=== PATIENT | female | born 1985 | race Hispanic/Latino ===

== ENCOUNTER 2018-07-20 16:51 | Emergency (ER) | payer SELFPAY ==
[2018-07-20 17:55] LABS: APPEARANCE,URINE Clear (CLEAR); BILIRUBIN,URINE Negative (NEGATIVE); COLOR,URINE Yellow (YELLOW); GLUCOSE, URINE (UA) >=1000 mg/dL (NEGATIVE); KETONES,URINE Negative (NEGATIVE); LEUKOCYTE ESTERASE ,URINE Trace (NEGATIVE); NITRATE,URINE Negative (NEGATIVE); OCCULT BLOOD,URINE Negative (NEGATIVE); PH,URINE 6.5 (5.0-8.0); PROTEIN,URINE Negative (NEGATIVE)
[2018-07-20 17:58] LABS: HCG,QUAL RESULT NEGATIVE (NEGATIVE)
[2018-07-20 18:37] LABS: BACTERIA,URINE Rare /HPF (None Seen); RBC,URINE 0-1 /HPF (0-1); SQUAMOUS EPITHELIAL CELL,UR Few /HPF (0-2)
[2018-07-20] MEDS ORDERED: LIDOCAINE HCL-MPF 1% 2ML VIAL ONE (19:08)
[2018-07-20] MEDS ORDERED: CEFTRIAXONE SODIUM 1 GM ONE (19:08)
[2018-07-20] MEDS ORDERED: PHENAZOPYRIDINE HCL 200 MG TABLET ONE (19:08)
== END 2018-07-20 19:39 | disposition home or self-care (01) ==
LOC: EDH 16:51
DX: N30.00 Acute cystitis without hematuria (principal); Z90.49 Acquired absence of other specified parts of digestive tract; Z72.0 Tobacco use
CPT/HCPCS: 81001; 81025; 87486; 87797; 96372; 99283; J0696; J3490

== ENCOUNTER 2019-01-26 18:09 | Emergency (ER) | payer OTHER ==
[2019-01-26 18:52] LABS: APPEARANCE,URINE Clear (CLEAR); BILIRUBIN,URINE Negative (NEGATIVE); COLOR,URINE Yellow (YELLOW); GLUCOSE, URINE (UA) >=1000 mg/dL (NEGATIVE); KETONES,URINE Negative (NEGATIVE); LEUKOCYTE ESTERASE ,URINE Negative (NEGATIVE); NITRATE,URINE Negative (NEGATIVE); OCCULT BLOOD,URINE Negative (NEGATIVE); PROTEIN,URINE Negative (NEGATIVE)
[2019-01-26 18:54] LABS: HCG,QUAL RESULT NEGATIVE (NEGATIVE)
[2019-01-26] MEDS ORDERED: ACETAMINOPHEN EXTRA STRENGTH 500 MG TABLET ONE (18:58)
[2019-01-26 19:24] LABS: BASOPHILS % (AUTO) 0.5 % (0.0-5.0); LYMPHOCYTES % (AUTO) 20.6 % (21.0-51.0); MEAN CORPUSCULAR HEMOGLOBIN 29.1 pg (27.0-33.0); MEAN CORPUSCULAR HGB CONC 33.5 g/dL (32.0-36.0); MEAN CORPUSCULAR VOLUME 86.8 fL (79-99); MONOCYTES % (AUTO) 6.1 % (3.0-13.0); NEUTROPHILS % (AUTO) 71.8 % (40.0-77.0); PLATELET COUNT (AUTO) 363 K/uL (130-400); RED BLOOD CELL COUNT(AUTO) 4.83 MIL/uL (4.00-5.50); RED CELL DISTRIBUTION WIDTH 13.2 % (11.0-15.5); WHITE BLOOD COUNT (AUTO) 14.3 K/uL (4.8-10.8)
[2019-01-26 19:28] LABS: CREATININE 0.7 mg/dL (0.5-1.5); POTASSIUM 3.7 mmol/L (3.5-5.1)
[2019-01-26 19:33] LABS: ALBUMIN 3.3 g/dL (3.5-5.0); BILIRUBIN,TOTAL 0.3 mg/dL (0.2-1.0); TOTAL PROTEIN, SERUM 7.5 g/dL (6.0-8.3)
[2019-01-26] MEDS ORDERED: LIDOCAINE HCL-MPF 1% 2ML VIAL ONE (19:41)
[2019-01-26] MEDS ORDERED: CEFTRIAXONE SODIUM 500 MG VIAL ONE (19:41)
[2019-01-26] MEDS ORDERED: AZITHROMYCIN 250 MG TABLET PO ONE (19:42)
[2019-01-26] MEDS ORDERED: KETOROLAC TROMETHAMINE 30MG/ML ONE (19:42)
== END 2019-01-26 20:51 | disposition home or self-care (01) ==
LOC: EDH 18:09
DX: R10.30 Lower abdominal pain, unspecified (principal); E11.9 Type 2 diabetes mellitus without complications; Z72.0 Tobacco use
CPT/HCPCS: 36415; 80053; 81003; 81025; 83690; 85025; 87210; 96372 ×2; 99284; J0696; J1885; J3490

== ENCOUNTER 2020-05-01 15:47 | Emergency (ER) | payer SELFPAY ==
[2020-05-01] MEDS ORDERED: ONDANSETRON HCL 4 MG/2 ML VIAL ONE (16:36)
[2020-05-01] MEDS ORDERED: KETOROLAC TROMETHAMINE 30MG/ML ONE (16:36)
[2020-05-01 16:37] LABS: BASOPHILS % (AUTO) 0.6 % (0.0-5.0); EOSINOPHILS % (AUTO) 1.6 % (0.0-8.0); HEMATOCRIT 41.5 % (36-48); LYMPHOCYTES % (AUTO) 27.4 % (21.0-51.0); MEAN CORPUSCULAR HEMOGLOBIN 29.6 pg (27.0-33.0); MEAN CORPUSCULAR VOLUME 87.2 fL (79-99); MONOCYTES % (AUTO) 5.8 % (3.0-13.0); NEUTROPHILS % (AUTO) 64.1 % (40.0-77.0); PLATELET COUNT (AUTO) 401 K/uL (130-400); RED BLOOD CELL COUNT(AUTO) 4.76 MIL/uL (4.00-5.50); RED CELL DISTRIBUTION WIDTH 11.8 % (11.0-15.5); WHITE BLOOD COUNT (AUTO) 14.9 K/uL (4.8-10.8)
[2020-05-01 16:46] LABS: CREATININE 0.8 mg/dL (0.5-1.5); POTASSIUM 3.8 mmol/L (3.5-5.1)
[2020-05-01 16:50] LABS: ALBUMIN 3.6 g/dL (3.5-5.0); BILIRUBIN,TOTAL 0.4 mg/dL (0.2-1.0); TOTAL PROTEIN, SERUM 7.8 g/dL (6.0-8.3)
[2020-05-01 17:30] LABS: APPEARANCE,URINE Clear (CLEAR); BILIRUBIN,URINE Negative (NEGATIVE); COLOR,URINE Yellow (YELLOW); GLUCOSE, URINE (UA) >=1000 mg/dL (NEGATIVE); KETONES,URINE Negative (NEGATIVE); LEUKOCYTE ESTERASE ,URINE Negative (NEGATIVE); NITRATE,URINE Negative (NEGATIVE); OCCULT BLOOD,URINE Small (NEGATIVE); PROTEIN,URINE Negative (NEGATIVE)
[2020-05-01] MEDS ORDERED: CEFTRIAXONE SODIUM 1 GM ONE (17:30)
[2020-05-01] MEDS ORDERED: INSULIN HUMULIN R 100 UNIT/ML 3ML ONE (17:32)
[2020-05-01 17:50] LABS: BACTERIA,URINE Few /HPF (None Seen); SQUAMOUS EPITHELIAL CELL,UR Moderate /HPF (0-2)
== END 2020-05-01 18:42 | disposition home or self-care (01) ==
LOC: EDH 15:47
DX: N20.0 Calculus of kidney (principal); E13.65 Other specified diabetes mellitus with hyperglycemia; E66.01 Morbid (severe) obesity due to excess calories; Z98.890 Other specified postprocedural states; Z72.0 Tobacco use; Z68.42 Body mass index [BMI] 45.0-49.9, adult
CPT/HCPCS: 36415; 74176; 80053; 81001; 81025; 82948; 85025; 96361; 96374; 96375; 99284; J0696; J1815; J1885; J2405

== ENCOUNTER 2021-08-13 17:23 | Emergency (ER) | payer SELFPAY ==
[~2021-08-13] VITALS: Ht 157.5 cm; Wt 102.1 kg
[2021-08-13] MEDS ORDERED: SULF1TAB42 PO (18:15)
[2021-08-13] MEDS ORDERED: METF-444 PO (18:15)
[2021-08-13] MEDS ORDERED: SULFAMETHOX-TMP DS 800/160 TAB PO SCH (18:30)
[2021-08-13] MEDS ORDERED: IBUPROFEN 600 MG TABLET ONE (19:05)
[2021-08-13 19:21] VITALS: BP 124/79
== END 2021-08-13 19:28 | disposition home or self-care (01) ==
LOC: EDH 17:23
DX: L02.416 Cutaneous abscess of left lower limb (principal); E11.9 Type 2 diabetes mellitus without complications; Z79.84 Long term (current) use of oral hypoglycemic drugs
CPT/HCPCS: 10060; 87070; 87076

== ENCOUNTER 2022-05-27 00:12 | Emergency (ER) | payer OTHER ==
[~2022-05-27] VITALS: Ht 154.9 cm; Wt 101.7 kg
[~2022-05-27 00:12] MED LIST: METF-444 PO; SULF1TAB42 PO
[2022-05-27 01:16] VITALS: BP 142/91
[2022-05-27] MEDS ORDERED: IBUP-1493 PO (01:24)
[2022-05-27] MEDS ORDERED: METF-444 PO (01:24)
[2022-05-27] MEDS ORDERED: SULF1TAB42 PO (01:24)
[2022-05-27] MEDS ORDERED: DIPH,PERTUSS(ACELL),TET VAC/PF 0.5 ML VIAL IM ONE (01:30)
[2022-05-27] MEDS ORDERED: TETANUS/DIPHTHERIA TOXOID [ADULT] 0.5 ML VIAL IM ONE (01:47)
== END 2022-05-27 01:38 | disposition home or self-care (01) ==
LOC: EDH 00:12
DX: L02.415 Cutaneous abscess of right lower limb (principal); E11.9 Type 2 diabetes mellitus without complications; E66.9 Obesity, unspecified; Z68.41 Body mass index [BMI] 40.0-44.9, adult; Z79.84 Long term (current) use of oral hypoglycemic drugs
CPT/HCPCS: 10060; 82948; 90471; 90714

== ENCOUNTER 2024-05-10 14:56 | Emergency (ER) | payer BC ==
[~2024-05-10] VITALS: Ht 144.8 cm; Wt 93.0 kg
[2024-05-10 14:56] VITALS: BP 143/93; PULSE 115; RESP 14; TEMP 98.4; O2SAT 98
[~2024-05-10 14:56] MED LIST changes: +IBUP-1493 PO
--- NOTE | 2024-05-10 15:17 | ERN ---
ED Note History of Present Illness Stated Complaint: RT GLUTE ABSCESS Chief Complaint: Abscess Time Seen by MD: 15:03 Dictation: PATIENT IS A 39-YEAR-OLD FEMALE WITH RIGHT GLUTEAL PAIN TENDERNESS SHE HAS HAD FOR 3-4 DAYS. NO FEVER NO CHILLS NO NAUSEA VOMITING NO HISTORY OF DIABETES. NO PRIMARY CARE DOCTOR. Allergies: Coded Allergies: No Known Drug Allergies (Unverified Allergy, Unknown, 01/26/19) Home Meds Active Scripts Ibuprofen (Ibuprofen 800 mg Tab) 800 Mg Tab, 800 MG PO Q8H PRN for fever or pain, #30 TAB 0 Refills Prov:EMILIANO COLEMAN NP 05/10/24 Clindamycin HCl (Clindamycin HCl) 300 Mg Capsule, 1 CAP PO QID for 10 Days, #40 CAP 0 Refills Prov:EMILIANO COLEMAN NP 05/10/24 Ibuprofen (Motrin/Advil) 800 Mg Tab, 800 MG PO TID, #30 TAB Prov:CHRISSY LEE MD 05/27/22 Sulfamethoxazole/Trimethoprim (Bactrim Ds Tablet) 1 Each Tablet, 1 TAB PO BID for 10 Days, #20 TAB 0 Refills Prov:CHRISSY LEE MD 05/27/22 Metformin HCl (Metformin HCl) 500 Mg Tablet, 500 MG PO BID, #60 TAB Prov:CHRISSY LEE MD 05/27/22 Metformin HCl (Metformin HCl) 500 Mg Tablet, 500 MG PO BID for 30 Days, #60 TAB Prov:DAY ELI MD 08/13/21 Sulfamethoxazole/Trimethoprim (Bactrim Ds Tablet) 1 Each Tablet, 1 TAB PO BID for 7 Days, #14 TAB 0 Refills Prov:DAY ELI MD 08/13/21 Past Medical History Past Medical History: Other Additional Past Medical Hx: REOCCURING ABSCESS Surgical History: None PSYCH History: no pertinent psych hx Family History: Negative Social History: Negative, Lives with family History: Not Applicable RN Note Reviewed/Agreed w/PFSH: Yes Review of System Dictation CONSTITUTIONAL: NEGATIVE EXCEPT FOR HPI HEAD/FACE: NEGATIVE EXCEPT FOR HPI EENT: NEGATIVE EXCEPT FOR HPI RESPIRATORY: NEGATIVE EXCEPT FOR HPI GASTROINTESTINAL/ABDOMINAL: NEGATIVE EXCEPT FOR HPI GENITOURINARY: NEGATIVE EXCEPT FOR HPI MUSCULOSKELETAL: NEGATIVE EXCEPT FOR HPI INTEGUMENTARY: NEGATIVE EXCEPT FOR HPI ERYTHEMA TENDERNESS TO LEFT GLUTEAL FOLD NEUROLOGICAL/PSYCH: NEGATIVE EXCEPT FOR HPI HEMATOLOGIC/LYMPHATIC: NEGATIVE EXCEPT FOR HPI ALL SYSTEMS NEGATIVE, EXCEPT NOTED ABOVE. 13 POINT REVIEW OF SYSTEMS ASSESSED AND ALL NEGATIVE EXCEPT FOR ABOVE. Initial Vital Sign VS Vital Signs Date Time Temp Pulse Resp B/P (MAP) Pulse Ox O2 Delivery O2 Flow Rate FiO2 05/10/24 14:56 98.4 115 14 143/93 98 0 05/10/24 14:56 Room Air* 21 Physical Exam Dictation VITAL SIGNS REVIEWED TY RN IN ROOM GENERAL APPEARANCE: ALERT, ORIENTED X 3, N MILD ACUTE DISTRESS, WELL DEVELOPED, NOURISHED. HEAD AND FACE: NON-TRAUMATIC. EYES: PERRL, PINK CONJUNCTIVAS, EYELID NO TRAUMA, ANTERIOR CHAMBER WITH ARCUS SENILIS. EARS: PINNAS INTACT AND NO SIGNS OF TRAUMA OR ERYTHEMA EAR CANALS CLEAR AND NO DISCHARGE TM NO ERYTHEMA NOSE: NO DISCHARGE, NO BLEEDING. OROPHARYNX: MOUTH NORMAL, TONGUE PINK, PHARYNX CLEAR,NO ERYTHEMA, TONSILS NO EXUDATES, NO ABSCESSES NOTED, MUCOUS MEMBRANE MOIST NECK: SUPPLE, NON-TENDER, NO THYROMEGALY, NO MASSES, NO JVD, NO BRUITS BREAST:DEFERRED CHEST:NO TENDERNESS, NO CREPITUS, NO PARADOXICAL MOVEMENT, NO RETRACTIONS LUNGS:CLEAR, WELL-VENTILATED, SYMMETRIC, NO RALES, NO WHEEZING, NO RHONCHI, NO STRIDOR, GOOD BREATH SOUNDS BILATERALLY HEART: REGULAR RATE, REGULAR RHYTHM, NO MURMUR, NO GALLOPS VASCULAR: NO PERIPHERAL EDEMA, ABDOMEN: SOFT, POSITIVE BOWEL SOUNDS, NONDISTENDED, NO GUARDING, NONTENDER, NO REBOUND, NO MASSES NO HEPATOMEGALY, NO SPLENOMEGALY, NO EASON'S SIGN, NO HERNIAS. RECTAL: DEFERRED GENITAL: DEFERRED NEUROLOGICAL: NORMAL SPEECH, MOTOR FUNCTION INTACT, SENSORY FUNCTION INTACT MUSCULOSKELETAL: NECK NONTENDER, FULL RANGE OF MOTION, BACK NONTENDER, FULL RANGE OF MOTION, EXTREMITIES: NONTENDER, FULL RANGE OF MOTION SKIN: COLOR PINK, LEFT GLUTEAL FOLD WITH MILD ERYTHEMA WITHOUT FLUCTUANCE OR INDURATION. NO PILONIDAL CYST LYMPHATIC: DEFERRED Results (Laboratory/Radiology) Labs Reviewed?: Yes ED Course ED Course Orders Procedure Category Date Status Time Acetaminophen 500mg PHA 05/10/24 Complete Tab (Tylenol 500mg T 15:30 Clindamycin 150mg Cap PHA 05/10/24 Complete (Cleocin 150mg Cap 15:30 Current Medications Medications (Trade) Dose Ordered Sig/Snehal Route PRN Reason Start Time Stop Time Status Last Admin Dose Admin Acetaminophen (TYLenol 500MG TAB) 1,000 mg ONCE ONCE PO 05/10/24 15:30 05/10/24 15:31 DC 05/10/24 16:27 Clindamycin HCl (Cleocin 150mg Cap) 600 mg ONCE ONCE PO 05/10/24 15:30 05/10/24 15:31 DC 05/10/24 16:33 Vital Signs Date Time Temp Pulse Resp B/P (MAP) Pulse Ox O2 Delivery O2 Flow Rate FiO2 05/10/24 14:56 98.4 115 14 143/93 98 Room Air* 0 21 05/10/24 14:56 98.4 115 14 143/93 98 0 SIXTEEN 30, NO LABS OR X-RAYS INDICATED. WE WILL TREAT PATIENT EMPIRICALLY FOR CELLULITIS WE WILL DISCHARGED HOME AFTER LOADING HER WITH CLINDAMYCIN AND GIVE HER THE NAME OF THE GENERAL SURGEON, DR. HERRERA FOR FOLLOW UP Medical Decision Making MDM MEDICAL DISCHARGE MAKING BASED ON EXAMINATION OF AFFECTED AREA AND EMPIRIC TREATMENT FOR CELLULITIS. PATIENT LOADED WITH CLINDAMYCIN AND GIVEN SOMETHING FOR PAIN SHE WILL BE REFERRED TO A LIST OF DOCTORS THAT WAS PROVIDED TO HER FOR FOLLOW UP ON SATURDAY AND GIVEN THE NAME OF THE SURGEON SHOULD IT GET WORSE IN THE NEXT 2-3 DAYS. DX & DISP Disposition: Discharge Departure Impression: Primary Impression: Cellulitis, gluteal, left Condition: Stable Scripts Ibuprofen (Ibuprofen 800 mg Tab) 800 Mg Tab 800 MG PO Q8H PRN for fever or pain, #30 TAB 0 Refills Prov: EMILIANO COLEMAN NP 05/10/24 Clindamycin HCl (Clindamycin HCl) 300 Mg Capsule 1 CAP PO QID for 10 Days, #40 CAP 0 Refills Prov: EMILIANO COLEMAN [employer]MENT INST[employer]ER 05/10/24 Additional Instructions: FOLLOW-UP WITH PRIMARY CARE PROVIDER IN 1 TO 2 DAYS. TAKE MEDICATIONS DIRECTED HERE IN THE EMERGENCY ROOM. OKAY TO CONTINUE HOME MEDICATIONS UNLESS OTHERWISE DISCUSSED DURING YOUR VISIT IN THE EMERGENCY ROOM TODAY. RETURN TO YOUR NEAREST EMERGENCY ROOM IF SYMPTOMS WORSEN OR IF THERE IS NO IMPROVEMENT. CALL 911 IF YOU NEED IMMEDIATE ASSISTANCE. TAKE TYLENOL OR MOTRIN [id number] NEEDED AND IF NO CONTRAINDICATIONS ARE PRESENT. INCREASE ORAL HYDRATION. A WOUND CULTURE OR URINE CULTURE WAS ORDERED HERE IN THE EMERGENCY ROOM DEPARTMENT PLEASE FOLLOW-UP WITH PRIMARY CARE PROVIDER AND ADVISE THEM TO GET REPEAT PORTS FROM OUR FACILITY. IF YOU HAD ANY ADRIANO WRAP/SPLINTS THAT WERE APPLIED HERE, PLEASE DO NOT REMOVE THEM UNTIL YOU SEE YOUR PRIMARY CARE OR SPECIALTY. TAKE ANTIBIOTICS DIRECTED UNTIL GONE. WARM COMPRESSES TO AREA THREE TO 4 TIMES A DAY. CALL SURGEON FOR AN APPOINTMENT IN THE NEXT 1-2 DAYS OR FOLLOW UP WITH ONE OF THE LIST PROVIDED YOU Referrals: SELF,REFERRAL (PCP) PEBBLES HERRERA DO Time of Disposition: 15:30 I have reviewed the case, and I agree with, Diagnosis and Plan EMILIANO COLEMAN NP May 10, 2024 15:17 NASRIN BRADFORD DO May 13, 2024 07:11
[2024-05-10] MEDS ORDERED: CLIN-141 PO (15:31)
[2024-05-10] MEDS ORDERED: IBUP-2077 PO (15:31)
[2024-05-10] MEDS: acetaMINOPHEN 500 MG TABLET PO ONE (16:27)
[2024-05-10] MEDS: CLINDAMYCIN 150 MG CAP PO ONE (16:33)
== END 2024-05-10 16:39 | disposition home or self-care (01) ==
LOC: EDH 14:56
DX: L03.317 Cellulitis of buttock (principal); Z79.1 Long term (current) use of non-steroidal anti-inflammatories (NSAID); Z79.84 Long term (current) use of oral hypoglycemic drugs
CPT/HCPCS: 99283